=== PATIENT | female | born 1985 | race Caucasian/White ===

== ENCOUNTER 2016-05-23 14:49 | Inpatient (IN) | payer OTHER ==
[~2016-05-23] VITALS: Ht 154.9 cm; Wt 58.6 kg
[2016-05-23 14:52] VITALS: BP 122/65; O2SAT 98
[2016-05-23 17:18] VITALS: BP 121/50; PULSE 92; O2SAT 97
--- NOTE | 2016-05-23 18:01 | ED.REPORT ---
HPI-General Illness Date of Service May 23, 2016 ED Provider: Dr. Peralta Pt is a 30 y/o female w/ a hx of PTSD presenting to the ED via EMS due to unusual behavior onset unknown. The patient's friends called 911 for unusual speech and behavior. According to nursing notes, she was at [facility] yesterday. The patient denies being homeless. She states she has been seen by an packing machine can feeder for her thyroid. She states that she has been seen by a psychiatrist at [facility]. She calls herself a "maiden of the author" and repeatedly asks me questions about my eye color, stethoscope color, etc, and is very delusional. History is limited due to mental status. Urine tox screen negative. Breathalyzer = 0. Nursing Notes Stated Complaint: MENTAL HEALTH Chief Complaint: Psychiatric Complaint Nursing Notes Reviewed: Yes General Time Seen by MD: 18:01 Chief Complaint Other (Unusual behavior) Hx Obtained From: Patient, EMS Unable to Obtain Hx: Mental status Arrived By: Ambulance Past Medical History Past Medical History PTSD Past Surgical History Unknown Smoking History Unknown if Ever Smoker Ambulatory Status Independent Unable to Obtain History Social history Review of Systems Unable to Obtain ROS Mental status Full Review of Systems Psychiatric: Reports: Change mental status, Confusion, Delusional Physical Exam Vital Signs Vital Signs Date Time Temp Pulse Resp B/P Pulse Ox O2 Delivery O2 Flow Rate FiO2 05/23/16 21:29 37.0 93 112/68 98 Room Air 05/23/16 17:18 37.0 92 121/50 97 Room Air 05/23/16 14:52 36.4 122/65 98 Room Air Initial VS: Reviewed, Vital signs normal ENT: Mucous membranes moist, Conjunctiva normal, No scleral icterus Respiratory: Breath sounds normal, Clear to auscultation, No respiratory distress Cardiovascular: Regular rate & rhythm, Heart sounds normal, Intact distal pulses Abdomen / GI: Soft, Non-tender, No distention Extremities: Vascular intact, Neuro intact, No swelling, No tenderness Skin: Warm, Dry, No cyanosis Neurologic: Alert, Oriented, Nonfocal General/Constitutional: Awake, Alert, No acute distress, Cooperative, Not toxic appearing Head / Eyes: Atraumatic, Normocephalic Dilated pupils 6-7 mm bilat Neck: Atraumatic, Supple, No meningismus, Full range of motion Enlarged thyroid about 3x normal size - she states this is ongoing PSYCH: Delusional May be hallucinating Interpretation & Diagnostics Lab Results Interpretation Result Diagram: 05/23/16 19005/23/161904 Test 05/23/16 17:16 05/23/16 19:05 Hold Urine Received (Received) White Blood Count 8.1th/mm3 (3.8-10.1) Red Blood Count 4.46mil/mm3 (3.90-5.20) Hemoglobin 13.2g/dL (12.0-15.6) Hematocrit 38.0% (35.0-46.0) Mean Corpuscular Volume 85.2fL (81-100) Mean Corpuscular Hemoglobin 29.6pg (27.0-35.0) Mean Corpuscular Hemoglobin Concent 34.7% (32.0-37.0) Red Cell Distribution Width 13.0% (12.3-15.4) Platelet Count 186bil/L (150-400) Neutrophils (%) (Auto) 62.2% (40-74) Lymphocytes (%) (Auto) 26.8% (14-46) Monocytes (%) (Auto) 9.2% (4-12) Eosinophils (%) (Auto) 1.2% (0-5) Basophils (%) (Auto) 0.5% (0-3) Sodium Level 138mEq/L (134-144) Potassium Level 3.5mEq/L (3.5-5.2) Chloride Level 101mEq/L (97-108) Carbon Dioxide Level 18mmol/L (18-29) Blood Urea Nitrogen 3mg/dL (6-20) Creatinine 0.69mg/dL (0.57-1.00) Estimat Glomerular Filtration Rate 144mL/min (>59) Glucose Level 89mg/dL (60-99) Calcium Level 8.7mg/dL (8.5-10.1) Total Bilirubin 1.1mg/dL (0.0-1.2) Aspartate Amino Transf (AST/SGOT) 17U/L (0-50) Alanine Aminotransferase (ALT/SGPT) 13U/L (0-32) Alkaline Phosphatase 44U/L (25-150) Total Protein 6.9g/dL (6.4-8.4) Albumin 4.2g/dL (3.4-5.0) Thyroid Stimulating Hormone (TSH) 1.380uIU/mL (0.450-4.500) Hold Read Top Tube Received (Received) Re-Eval/Medical Decision Med Decision/Clinical Course 30-year-old presents with overtly psychotic behavior, with no history available locally. She is most recently come from [place], and [place] prior to that. She has overt hyper mormonism delusional thought, flight of ideas, and appears to be fairly typical bipolar psychotic in character. The only history she provides is PTSD due to unspecified incidents. She is very disorganized and difficult to get information from. At this point, DCR was consulted, and agreed that she is gravely impaired and requires detainment. She is detained as a single bed certification pending bed availability on the psychiatric unit tomorrow. Signed out at 2:[address] Linares Source of Hx: EMS, Family Consultation : Consulted With: b and b gang worker Call Returned at: 18:30 Manufacturing Engineer Automotive: Will see patient, Agrees with eval, Agrees with plan Note: After evaluating patient, recommends DMHP assessment. Counseled Regarding: Diagnosis, Lab results, Need for follow-up, When/why to return to ED Discharge & Departure Primary Impression: Psychosis Additional Impression: Bipolar mood disorder Disposition: ADMITTED TO HOSPITAL Discharge Condition All VS Reviewed: Yes Condition: Stable Referrals: NOPCP (PCP) Scribe Attestation Portions of this note were transcribed by Terry Lerma. I, Dr. Peralta personally performed the history, physical exam and medical decision-making; I reviewed and confirmed the accuracy of the information in the transcribed note. Signed by Parth Noel, 05/23/16 - 1899 Moreno Peralta MD May 23, 2016 18:01 TERRY LERMA May 23, 2016 18:03
[2016-05-23 19:14] LABS: BASOPHILS % (AUTO) 0.5 % (0-3); EOSINOPHILS % (AUTO) 1.2 % (0-5); MONOCYTES % (AUTO) 9.2 % (4-12); Mean Corpuscular Hemoglobin 29.6 pg (27.0-35.0); Mean Corpuscular Volume 85.2 fL (81-100); NEUTROPHILS % (AUTO) 62.2 % (40-74); Platelet Count 186 bil/L (150-400)
[2016-05-23 21:29] VITALS: BP 112/68; PULSE 93; O2SAT 98
[2016-05-24 04:24] VITALS: BP 122/81; PULSE 91; RESP 16; O2SAT 96
[2016-05-24] MEDS ORDERED: Haloperidol 5 mg/mL Inj IM ONE (04:25)
[2016-05-24 06:11] VITALS: BP 118/72; PULSE 92; RESP 18; O2SAT 97
[2016-05-24 11:42] VITALS: BP 99/67; PULSE 81; RESP 16; O2SAT 99
--- NOTE | 2016-05-24 12:44 | NUR ---
Nursing: Admission note: Erika arrived on the unit dressed in hospital garb accompanied by transport staff. She was shown to room 222 and lay in bed stating she wants to sleep. When approached by scientific writer, pt agreed to sign unit form for ROL but when approached by A staff, pt did not sign it and wrote a Bible verse on the form. Also wrote multiple bible verses and statements on the no-harm safety form. Fruit Farmworker did not proceed further with form signing or admission interview. When scientific writer approached Erika initially to introduce myself, she stated "I love your whittaker hair. You must be a pearl person...I am totally ok, I can just leave here, go home and get on with things... (scientific writer informed her that she was on a hole for up to 72 hours), I perceive that you are not telling me something. What are you not telling me?" (As scientific writer attempted to explain that she is detained involuntarily here). Also asked the name of the CDP who evaluated her in ED. When scientific writer told her Erika she could only have the first name, Erika responded that she knew the last name of the individual (She was correct on the name.) Requested earplugs to allow her to rest uninterrupted. A: Disorganized in thoughts. Religiously focused. Tired. Responding verbally. Suspicious? No insight into why she is detained. P: continue to assess. Addendum: 05/24/16 at 1812 by GREGORIO DOLAN RN Day shift: Erika slept until 1600. She then roused and changed to scrubs. Came to dining room and signed 2 admission papers. After being asked a couple more questions, she stated, "I can't answer now." Admission screens filled out but many have "Unknown" as the info. With assistance, Erika returned a call from her father. At 173, Pt was out in , sitting at table. When staff member turned gaze away and back, pt was observed on the floor. A peer patient stated Erika had fallen and he assisted her back to her seat. When Erika was questioned, she stated, "I just saw the man, the man who brings me ricardo. I fell for him.I just do that...I won't hurt anyone or myself." Denied any injury. Dr Harvey notified of pt. event at 175. VS WNL.
[2016-05-24 17:40] VITALS: BP 114/80; PULSE 74; RESP 20
[2016-05-24] MEDS ORDERED: LORazepam 1 mg Tablet PO PRN (17:40)
[2016-05-24] MEDS ORDERED: Benzocaine-Menthol Lozenge 2/Pkg PO PRN (17:40)
[2016-05-24] MEDS ORDERED: hydrOXYzine Pamoate 25 mg Capsule PO PRN (17:40)
[2016-05-24] MEDS ORDERED: Magnesium Hydroxide 10 mL Oral Concentration PO PRN (17:40)
[2016-05-24] MEDS ORDERED: Alum-Mag Hydrox-Simeth 30 mL Suspension PO PRN (17:40)
[2016-05-24] MEDS ORDERED: CLON-399 PO (18:16)
--- NOTE | 2016-05-25 01:27 | NUR ---
Observations 1900 to 0700 Pt behavior is bazaar at times. pr insisted she needed a wheelchair but I watched her walk though her room, she went to the rest room and had no issues. Staff agreed she did not need the wheelchair. She was walking around just fine and she told me as I wheeled it away that she needs in case she faints. She then plopped on the ground very carefully and pretended to faint. She tried it a few more times in the hallway and never hit her head. The wheel chair is no longer on the floor and she waked good the rest of th night even though she is trying to act out that shes not okay at times. Pt first appeared asleep at 22:45 and was observed every 15 minutes through the night as directed.
--- NOTE | 2016-05-25 06:10 | NUR ---
Nursing MARIA G Pt spent the evening coloring with her peers. She presents with childlike behavior, elevated mood and lability. She would be laughing and smiling one moment and then tearful the next. She performed a lot of attention seeking behavior and enjoyed the attention gained from both her peers and staff. She performed ADLs and participated in evening activities. No scheduled HS medications to be given. Declined offered prn medication for mood and sleep. Addendum: 05/25/16 at 0627 by JASBIR QUINN RN Adequate sleep through the night with no noted distress or awakening per protocol checks. She has remained asleep since 2244 for over 7 hours of sleep.
--- NOTE | 2016-05-25 13:14 | NUR ---
Supervisor Tan Room./ c.m. S.:"There is a man... He has my flours... I saw him in my room... May I call you love? Nobody called me love for a long time..." O.: met with pt. in a piano room for initial interview. Pt. is ARACELI 72 hrs hold as GD. She said that it was her 1st psych. hospitalization. She was diagnosed with Bipolar d/o and PTSD in the past. She wasn't taking her meds for a long time. She didn't see anything wrong with her. She came to [place] from [place], [place] to visit her "very good friend". She was upset with her friend for calling police and sending pt. to a hospital ED. Pt. denied SI/HI, denied depression or anxiety. She talked about "a man who has" her "flours". She was "communicating" with him on and off during a day. She also described him in details. She had a hard time following a conversation. She was acting out like a child with different gestures and sounds (sniffing, hamming, etc). She couldn't provide much of reliable information. She was very friendly and talkative with peers. A.: pt. is cooperative, pleasant, hyperverbal, confused, delusional, internally preoccupied and responding on internal stimuli. She is a poor historian. P.: monitor behavior, provide safety, encourage pt. to take meds, engage in the unit activities, collect more information; follow care plan.
--- NOTE | 2016-05-25 13:27 | NUR ---
Nursing Day Shift- S- "Everything is great! I have my lion (Pt. looked t a folder she was holding onto.) And..my green pants on the green floor! (Pt. had whittaker pants on and the floor is sargent.) O- Pt. had slept 7 plus hours per report. She was awake for breakfast and dressed in flannel pajamas. Pt. appeared bright with rapid upbeat speech and a childlike affect. She was observed skipping in the hallway. She was very social with peers and appeared to have poor boundaries, sitting and standing very closely with others. Pt. was offered and accepted Ativan 1 mg at 0945 for hypomanic behavior. It appeared to have a limited calming effect. A- Hypomania, disorganized thoughts, auditory hallucinations. Vulnerable with poor boundaries and a wide smile. P- Monitor Pt. for safety and appropriate behavior with peers. Cont. BHTP.
--- NOTE | 2016-05-25 16:19 | NUR ---
Observations 0700 to 1900 Pt affect and mood was childlike, labile and preoccupied. Pt was in and out of her room most of the day. Pt ate meals in D.R. and ate 100% of meals. Pt ate snack. Pt attended groups or unit activities today. Pt attended community meeting and set a goal for the day. Pt rated her mood 10 out of 10, with 10 being the highest. Pt did some coloring with peers. Pt went out on patio with staff and peers to get some fresh air. Pt was pleasant, polite and cooperative. Pt was social with peers but has poor boundaries. Pt maintained behavior throughout the shift. Pt used the phone several times during the day. Pt was observed every 15 minutes throughout the shift as ordered. Pt is currently resting in bed.
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
[2016-05-25] MEDS: OLANZapine Zydis ODT 5 mg Tablet PO SCH (20:30)
--- NOTE | 2016-05-25 21:29 | NUR ---
Nursing Note Luna Pt in milieu upon arrival to unit. Pt affect superficially bright and child like. Pt denied anxiety stating " Im not anxious but Im not happy about not being able to pick out the clothes I have to wear here". Pt denied depression and SI. Pt thought process disorganized and speech rapid. Pt cooperative and polite and had been socializing with peers throughout the shift. Pt declined meds for court in AM. Q15 min safety checks done per protocol WCTM sleep, safety, behavior
--- NOTE | 2016-05-26 02:01 | NUR ---
Observations 1900 to 0700 Pt behavior is the same as last night. Pt only did the fake "fainting" spell once. Pt had a hard time staying asleep. Pt first appeared asleep at 22:15 and was observed every 15 minutes through the night as directed.
--- NOTE | 2016-05-26 06:17 | NUR ---
Sleep 11p-7a Delayed onset of sleep. Pt requesting to call an compliance attorney in [place] during the middle of the night. Pt instructed phone calls can be made during business hours in the daytime. Pt quietly coloring in dining room until fell back asleep @ 0215. Total sleep 5.5+ hours.
[2016-05-26] MEDS: OLANZapine Zydis ODT 5 mg Tablet PO SCH ×2 (08:30→20:11)
--- NOTE | 2016-05-26 12:39 | NUR ---
Nursing Day Shift- S- "No thank you. It makes me sleepy during the day. I'll take it at bedtime." O- Pt. had slept 5.5 hours plus per report. She was awake for breakfast and court. Pt. continues to be very bright, with pressured speech and poor boundaries. She declined medications before court. They were offered again after and the Pt. declined, explaining they caused sedation. She did agree to take them at bedtime tonight. A- Gem like symptoms with bright friendly affect and poor boundaries with peers. P- 2nd opinion being obtained for forced medications. Cont. BHTP.
[2016-05-26 14:41] VITALS: BP 109/80; PULSE 81; RESP 16
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
--- NOTE | 2016-05-26 18:23 | NUR ---
[facility] Day Shift Pt maintained behavioral control throughout the shift. Pt affect appears bright, manic. Pt spends most of the shift engaging in unit activities and socializing with peers. Pt occasionally observed becoming tearful when engaging in group activities (pt unable to articulate precisely why this was the case). Pt is pleasant and appropriate with staff and peers when active on the unit. Pt attended community meeting in the AM and group activities throughout the shift. Pt attended all meals and ate approx 100% of all meals.
--- NOTE | 2016-05-26 21:55 | NUR ---
[id number] NURSING NOTE Mood= "good! It's so nice of you to ask me that, thank you!" *stretches out hand for a handshake* Affect= cheerful, hypomanic Behavior= very visible and active on the unit, socializing w/peers, attended rec group, visited with her parents. Requested her HS meds early as she reports she likes to "go to bed early so I can wake up at 4:30 and write". 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 Thought processes= more coherent than 2 evenings ago when this television script writer last worked with her. Able to answer some questions appropriately but can be disorganized, occasionally pressured and rapid. Denies SI/HI/AH/VH.
--- NOTE | 2016-05-27 01:53 | NUR ---
Observations 1900 to 0700 Pt affect and behavior were much improved. Pt's parents visited last night. Pt first appeared asleep at 21:45 and was observed every 15 minutes through the night as directed.
--- NOTE | 2016-05-27 05:31 | NUR ---
nursing, nights, 11-7 s/o- has appeared to sleep after 2144 during q 15 minute assessments. a- no apparent distress. p- monitor behavior/emotional state, quality, times and amount of sleep, use and effect of medication. piter
[2016-05-27] MEDS: OLANZapine Zydis ODT 5 mg Tablet PO SCH ×2 (09:11→21:00)
--- NOTE | 2016-05-27 11:31 | NUR ---
Nursing Day Shift- S- "Thank you. I would prefer to have an injection. (Pt. had declined her scheduled AM zyprexa. She was told of the 2nd opinion for forced medications, and stated the above. Dr. Harvey was consulted, and changed the Zyprexa order to HS.) O- The Pt. was awake and dressed for breakfast. She had slept over 8 hours per report. Pt. continues to appear hyperverbal, bright and very social. She agreed to take PO Zyprexa at HS. A- Refused AM medications. Hypomanic with poor boundaries. P- 2nd opinion signed for forced meds. Cont. BHTP.
--- NOTE | 2016-05-27 13:20 | PCM.PNPSY ---
Subjective Date of Service May 27, 2016 Subjective I spent 30 minutes both reviewing treatment plan and providing supportive/ educational psychotherapy. I spent more than 50% of the time counseling the patient. I reviewed the treatment plan with the patient and discussed options available including the potential risks, benefits and side effects. Erika reports continued improvement in thought organization and mood stability. Staff reports that she continues to be very busy on the unit but she is participating well in one-to-one unit and group activities. She remains somewhat intrusive, hypersexual, and pressured in speech and thought. She has a lack of insight and judgment. She is redirectable. She slept 8.25 hours and denies psychotic symptoms review. She is declining offers of medication this time. She has a second opinion medication override and will take the medication when faced with an IM alternative. . Current Medications Current Medications Clonazepam 0.5 mg BID PO Last administered on 05/26/16 20:11; Admin Dose 0.5 MG ; Start 05/25/16 at 20:30 Olanzapine 10 mg BID PO Last administered on 05/26/16 20:11; Admin Dose 10 MG; Start 05/25/16 at 20:30; Stop 05/27/16 at 10:13; Status DC Mental Status Exam Appearance: Neat/well groomed Attitude: Pleasant, Cooperative Behavior: Distractible Affect: Other (euphoric) Mood: Euphoric Thought Process/Associations: Goal Directed, Tangential Speech Production: Abundant Speech Rate: Normal Speech Articulation: Normal Thought Content: Erotomanic Danger to Self/Suicidal Ideati: None Danger to Others: None Delusions: Grandiose (Endorses) Consciousness: Hyper-vigilant Orientation: Person, Place, Date, Situation Memory: Grossly Intact Estimate Intellectual Function: Above Average Basis for IQ estimate: Awareness current events, Word use/vocabulary, Educational history Attention/Concentration & Cogn: Impaired Cognitive Testing Method: Abstract Reasoning during interview Insight: Limited Judgement: Limited Result Diagram: 05/23/16190405/23/161904 Mental Health Plan The patient is a 30-year-old white female who apparently left [place] 48 hours ago, abandoned her car on the freeway, and was taken to the ER by friends for recent bizarre behavior. She denies history of substance abuse and her urine tox screen was negative and she appears quite healthy, if not extremely active and having some bizarre behaviors. She reported being diagnosed with bipolar disorder and 2007. She reported trials of lithium Which she stated she did not tolerate well. Client is refusing all medications. She does not believe she needs medications and does not believe she has a mental disorder. In observing her, she certainly has all the behaviors of bipolar mood disorder, manic with psychotic features. A medication override was obtained through a second physician opinion. She received 1 dose of Zyprexa last evening. [place] I: 1. Preliminary bipolar mood disorder with psychosis. 2. Reported post-traumatic stress disorder. 3. Rule out schizophrenia. [place] II: Deferred. [place] III: None. [place] IV: Unknown. [place] V: Current Global Assessment of Functioning equal to 30. Medications Treatments Patient is being provided with a high degree of safety through the structure and active adult engagement. We will focus on developing improved coping skills and identifying stressors that may have led to current episode. We will attempt to: Integrate into therapeutic groups, milieu and individual therapy. Maintain in a closely monitored and structured unit Provide low-stimulation environment Obtain collateral data to assist in treatment planning Assess degree of lability of affect and impulse control Complete safety plan Establish a consistent sleep pattern Medication effective in stabilization of mood and/or thought process Reduce the risk of imminent harm to self by providing a safe environment Tolerates medication without side effects Patient will be on the following psychiatric medications: Recommend Zyprexa 10 mg at bedtime Recommend Klonopin 0.5 mg twice a day Address patient's legal status Patient is on a 72 hour involuntary treatment hold. Patient will be given the opportunity to talk to her health information tech and the behavioral interventionist Tuesday Kyler Harvey MD May 27, 2016 13:20
--- NOTE | 2016-05-27 17:57 | NUR ---
[facility] Day Shift Pt affect and behavior mostly unchanged from previous shift. Pt maintained behavioral control throughout the shift. Pt affect appears bright, manic. Pt spends most of the shift engaging in unit activities and socializing with peers. Pt occasionally observed becoming tearful when engaging in group activities. Pt is pleasant and appropriate with staff and peers when active on the unit. Pt attended community meeting in the AM and group activities throughout the shift as able (pt frequently needed to meet with various staff members during group activities). Pt attended all meals and ate approx 100% of all meals.
--- NOTE | 2016-05-27 22:30 | NUR ---
NURSING NOTE [id number] Mood: "I am just wonderful except I am very worried I will faint in the shower and hit my head and what will happen to me? Will you come with me and help me sign the legal paper so that my sister can make my decisions for me if I hit my head? Oh will you? Please?" Affect: hypomanic Behavior: intrusive w/other pts, needed redirection several times for inappropriate touching of other pts as well as this underwriter (stroking my hand). Pt. walked and sometimes run-shuffled around the unit w/a long to-do list of activities she wants to accomplish during the shift and persistently asks this underwriter to assist her w/the activities. She has been social and busy on the unit, seeks out interaction w/her peers and staff frequently. Pt. was in the shower room for 1.5 hrs. When this underwriter tried to get her out of the shower room she sat on the floor and refused to move stating: "I had an agreement that I couldn't come out of here until I signed my legal paperwork." Pt. eventually agreed to come back to her room. Signed a MARLYS to give info to her sister. Refused to take her HS Zyprexa in PO format and requested an injection, despite this underwriter providing education. Pt. stated "this is me and Dr. Harvey's little loophole because I have legal paperwork to sign and due to the legal paperwork this is the way that I choose to take it". Order obtained for injection. Thought processes= disorganized, pressured, presents as overly needy, particularly when staff has to attend to other pts. Redirectable at times but other times has a defiant edge.
--- NOTE | 2016-05-28 04:27 | NUR ---
Pt had visitors in evening. Out on unit trying to sell another Pt a car and write up contract. Asleep at 0030. Pt observed every 15 minutes as ordered.
--- NOTE | 2016-05-28 05:53 | NUR ---
nursing, nights, 11-7 s- can i have some bible songs ? at what time ? by clock time ? i'm just going to read this passage. thanks. o- has appeared to sleep after 0030 during q 15 minute assessments. a- somewhat manipulative, no apparent distress. p- monitor behavior/emotional state, quality, times and amount of sleep, use and effect of medication. piter
[2016-05-28 09:00] VITALS: BP 110/74; PULSE 75; RESP 18
--- NOTE | 2016-05-28 12:28 | PCM.PNPSY ---
Subjective Date of Service May 28, 2016 Subjective I spent 20 minutes both reviewing treatment plan and providing supportive/ educational psychotherapy. I spent more than 50% of the time counseling the patient. I reviewed the treatment plan with the patient and discussed options available including the potential risks, benefits and side effects. Erika reports feeling great. Staff reports that she continues to be very busy on the unit but she is participating well in one-to-one unit and group activities. She remains somewhat intrusive, hypersexual, and pressured in speech and thought. She has a lack of insight and judgment. She is redirectable. She slept 3.5 hours and denies psychotic symptoms review. She is declining offers of medication this time. She has a second opinion medication override and will take the medication when faced with an IM alternative. Current Medications Current Medications Olanzapine 10 mg PRN PRN IM Last administered on 05/27/16t 23:07; Admin Dose 10 MG; Start 05/27/16 at 22:45 Mental Status Exam Appearance: Neat/well groomed Attitude: Pleasant, Cooperative Behavior: Distractible Affect: Other (euphoric) Mood: Euphoric Thought Process/Associations: Goal Directed, Tangential Speech Production: Abundant Speech Rate: Normal Speech Articulation: Normal Thought Content: Erotomanic Danger to Self/Suicidal Ideati: None Danger to Others: None Delusions: Grandiose (Endorses) Consciousness: Hyper-vigilant Orientation: Person, Place, Date, Situation Memory: Grossly Intact Estimate Intellectual Function: Above Average Basis for IQ estimate: Awareness current events, Word use/vocabulary, Educational history Attention/Concentration & Cogn: Impaired Cognitive Testing Method: Abstract Reasoning during interview Insight: Limited Judgement: Limited Result Diagram: 05/23/16190405/23/161904 Mental Health Plan The patient is a 30-year-old white female who apparently left [place] 48 hours ago, abandoned her car on the freeway, and was taken to the ER by friends for recent bizarre behavior. She denies history of substance abuse and her urine tox screen was negative and she appears quite healthy, if not extremely active and having some bizarre behaviors. She reported being diagnosed with bipolar disorder and 2007. She reported trials of lithium Which she stated she did not tolerate well. Client is refusing all medications. She does not believe she needs medications and does not believe she has a mental disorder. In observing her, she certainly has all the behaviors of bipolar mood disorder, manic with psychotic features. A medication override was obtained through a second physician opinion. She received another dose of Zyprexa last evening but only when given IM. [place] I: 1. Preliminary bipolar mood disorder with psychosis. 2. Reported post-traumatic stress disorder. 3. Rule out schizophrenia. [place] II: Deferred. [place] III: None. [place] IV: Unknown. [place] V: Current Global Assessment of Functioning equal to 30. Medications Treatments Patient is being provided with a high degree of safety through the structure and active adult engagement. We will focus on developing improved coping skills and identifying stressors that may have led to current episode. We will attempt to: Integrate into therapeutic groups, milieu and individual therapy. Maintain in a closely monitored and structured unit Provide low-stimulation environment Obtain collateral data to assist in treatment planning Assess degree of lability of affect and impulse control Complete safety plan Establish a consistent sleep pattern Medication effective in stabilization of mood and/or thought process Reduce the risk of imminent harm to self by providing a safe environment Tolerates medication without side effects Patient will be on the following psychiatric medications: Recommend Zyprexa 10 mg at bedtime Recommend Klonopin 0.5 mg twice a day Address patient's legal status Patient is on a 72 hour involuntary treatment hold. Patient will be given the opportunity to talk to her atlassian administrator and the belt dresser Tuesday Kyler Harvey MD May 28, 2016 12:28
--- NOTE | 2016-05-28 16:26 | NUR ---
spiritual care: pt request Visited with pt who was in the piano room playing the piano and singing a hymn. Pt was grateful for the pizza hut assistant visit and talked to me about her experiences and [place]. Pt seems to have a hyper religiosity about her - which is not unusual but seems to be fueling most of her delusions. We talked about her friend who called the police on her, her experience of [place] and her hopes for the future. I encouraged her to stop trying to figure everything out and assign spiritual meaning to everything and instead to allow things to flow for her. I suggested some visualization prayer to help her get out of her obsessive thoughts. We prayed together before I left the room. Spiritual care will continue to follow as needed.
--- NOTE | 2016-05-28 18:18 | NUR ---
[facility] Day Shift Pt affect and behavior mostly unchanged from previous shift, though pt does appear more religiously preoccupied than noted on previous shifts. Pt maintained behavioral control throughout the shift. Pt affect appears bright, manic. Pt spends most of the shift engaging in unit activities and socializing with peers. Pt occasionally observed becoming tearful when engaging in group activities. Pt is pleasant and appropriate with staff and peers when active on the unit. Pt expresses some need to be "solitary" in the AM. Pt attended community meeting in the AM and group activities throughout the shift. Pt attended all meals and ate approx 100% of all meals.
--- NOTE | 2016-05-28 18:27 | NUR ---
Nursing Day Shift S: "I really don't think I need that. Can I refuse it? Or can I just take half?" O: Patient did take her AM Clonazepam 0.5 mg tab at breakfast with encouragement. Has been very social with peers and staff. Pleasant mood. Eating well at meals. Attending group activities. Denies anxiety, depression, harmful thoughts, and hallucinations. A: Talkative. Pleasant mood. P: CPOC. Monitor mood and behavior.
[2016-05-28] MEDS: OLANZapine Zydis ODT 5 mg Tablet PO SCH (20:24)
--- NOTE | 2016-05-28 20:29 | NUR ---
Manager Quality/Counselor: S: "I'm making a difference by helping the patients here." O: Met with patient. Patient slept 5.5 hours last night per staff. She denied S/I and H/I. She denied auditory and visual hallucinations. Depression is 0/10 and anxiety is ".5"/10. When asked her mood, she stated, "Content but troubled in spirit." A: Patient is cooperative, distractible, euphoric, tangential, grandiose, hypervigilant, limited insight, limited judgement. P: Follow care plan, coordinate with out-patient providers.
--- NOTE | 2016-05-29 04:59 | NUR ---
Final Rail Cutter 7pm to 7am Pt visible on unit at start, interacting appropriately with peers, requests less demanding and less dramatic. BX less impulsive. Thoughts distractible and loose, less grandiose. Pt parents visited and they reported she seemed clearer. Pt went to bed without incident and slept through the night uninterrupted. Monitored q15 minutes for safety location and accountability.
[2016-05-29 11:43] VITALS: BP 110/73; PULSE 83; RESP 16
--- NOTE | 2016-05-29 15:26 | PCM.PNPSY ---
Subjective Date of Service May 29, 2016 Subjective I spent 45 minutes both reviewing treatment plan and providing supportive/ educational psychotherapy. I spent more than 50% of the time counseling the patient. I reviewed the treatment plan with the patient and discussed options available including the potential risks, benefits and side effects. Erika reports feeling calm and back to her normal self. Staff reports that she has been more socially appropriate on the unit and continues to participate well in one-to-one unit and group activities. She is significantly less intrusive, hypersexual, and pressured in speech and thoughtt. She is requiring almost no redirection. She slept 8 hours and denies psychotic symptoms review. She denies medication side effects Current Medications Current Medications Olanzapine 10 mg HS PO Last administered on 05/28/16 20:24; Admin Dose 10 MG; Start 05/27/16 at 21:00 Olanzapine 10 mg PRN PRN IM Last administered on 05/27/16 23:07; Admin Dose 10 MG; Start 05/27/16 at 22:45 Mental Status Exam Vital Signs Vital Signs Date Time Temp Pulse Resp B/P Pulse Ox O2 Delivery O2 Flow Rate FiO2 05/29/16 11:43 36.1 83 16 110/73 Appearance: Neat/well groomed Attitude: Pleasant, Cooperative Behavior: No unusual behavior Affect: Well Modulated/Appropriate Mood: Euthymic Thought Process/Associations: Goal Directed, Tangential Speech Production: Normal Speech Rate: Normal Speech Articulation: Normal Thought Content: Erotomanic Danger to Self/Suicidal Ideati: None Danger to Others: None Consciousness: Alert Orientation: Person, Place, Date, Situation Memory: Grossly Intact Estimate Intellectual Function: Above Average Basis for IQ estimate: Awareness current events, Word use/vocabulary, Educational history Attention/Concentration & Cogn: Impaired Cognitive Testing Method: Abstract Reasoning during interview Insight: Good Judgement: Good Result Diagram: 05/23/16190405/23/161904 Mental Health Plan The patient is a 30-year-old white female who apparently left [place] 48 hours ago, [place] her car on the freeway, and was taken to the ER by friends for recent bizarre behavior. She denies history of substance abuse and her urine tox screen was negative and she appears quite healthy, if not extremely active and having some bizarre behaviors. She reported being diagnosed with bipolar disorder and 2007. She reported trials of lithium Which she stated she did not tolerate well. Client is refusing all medications. She does not believe she needs medications and does not believe she has a mental disorder. In observing her, she certainly has all the behaviors of bipolar mood disorder, manic with psychotic features. A medication override was obtained through a second physician opinion. Erika is now taking medications and has had a marked decrease in manic and psychotic Symptoms. If she continues to improve would anticipate discharge within the next 72 hours. [place] Dend[place] I: 1.bipolar mood disorder manic phase with psychotic features. . [place] II: Deferred. [place] III: None. [place] IV: Unknown. [place] V: Current Global Assessment of Functioning equal to 40. Medications Treatments Patient is being provided with a high degree of safety through the structure and active adult engagement. We will focus on developing improved coping skills and identifying stressors that may have led to current episode. We will attempt to: Integrate into therapeutic groups, milieu and individual therapy. Maintain in a closely monitored and structured unit Provide low-stimulation environment Obtain collateral data to assist in treatment planning Assess degree of lability of affect and impulse control Complete safety plan Establish a consistent sleep pattern Medication effective in stabilization of mood and/or thought process Reduce the risk of imminent harm to self by providing a safe environment Tolerates medication without side effects Patient will be on the following psychiatric medications: Recommend Zyprexa 10 mg at bedtime Recommend Klonopin 0.5 mg twice a day Address patient's legal status Patient is on a 72 hour involuntary treatment hold. Patient will be given the opportunity to talk to her printing equipment mechanic apprentice and the patent litigation associate Kyler Tapia MD May 29, 2016 15:26
--- NOTE | 2016-05-29 18:20 | NUR ---
Observations 0700 to 1900 Pt maintained behavioral control throughout the shift. Pt is disoriented, distractible, grandiose. Pt is religiously preoccupied--spent much of morning praying and chanting in room. Pt is needy/entitled, consistently making requests that contradict each other. Pt seemed to enjoy socializing with peers but conversations that contract technical writer overheard were nonlinear. Pt had visit with parents in evening. Pt ate 75-100% of meals and was observed every 15 minutes as ordered.
[2016-05-29] MEDS: OLANZapine Zydis ODT 5 mg Tablet PO SCH (20:02)
--- NOTE | 2016-05-29 20:42 | NUR ---
Pt declined Klonoabebe at stating " I think it is too strong. I felt really groggy when I woke up today and stayed like that until noon". Pt given ambien for sleep.
--- NOTE | 2016-05-29 22:48 | NUR ---
Nurses Note Evening Patient has been pleasant,polite and appropriately social with peers. She enjoyed a visit from her parents and retired to bed shortly afterwards. Patient has remained medication compliant without adverse effects. Will maintain q 15min. checks for safety and support. Addendum: 05/29/16 at 2251 by BINH VAZQUEZ RN Amended: Links added.
--- NOTE | 2016-05-30 04:49 | NUR ---
Pt slept through the night with uninterrupted sleep. Pt slept 8.5 hours. Monitored q 15 min for safety , location and accountability.
--- NOTE | 2016-05-30 08:13 | NUR ---
PT REFUSED Floyd RIVERO Pt. 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 I think I'm good!" *smiles* Education provided.
[2016-05-30 09:37] VITALS: BP 108/67; PULSE 83; RESP 18
--- NOTE | 2016-05-30 13:22 | NUR ---
Nursing Dayshift: S: "Can I move to room 224 after they put the new door on?" O: Patient c/o male in the room next to her "he sometimes yells and sings real loud and it would be nice to have a room farther away". Has been eating her meals by herself today with a good appetite. Has been out of her room for group activities. Pleasant on approach. Med compliant. Working out in her room. Anxiety "low". Depression "a little". Denies harmful thoughts and hallucinations. A: Bright and cheerful though less than yesterday. Scripture focused. P: CPOC. Monitor mood and behavior.
--- NOTE | 2016-05-30 13:47 | NUR ---
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 S.:"I slept wonderful! I don't remember when I slept that good ever. I feel really content and centered." O.: met with pt. in her room. She was practicing specific yoga poses. "Dr. Harvey said that I need to master double fold because it will help me with meditation. He also said that I have to learn better a scorpion pose before age 31. Otherwise I won't be able to have children." We discussed her yoga practice and her mood. She denied SI/HI, denied AH/VH, denied paranoid/delusional thoughts. She felt "very stable, content and centered" today. She denied depression or anxiety. She had a good visit with her parents yesterday and they were going to come back today. She had a few "concerns" about her future outpatient treatment and a place to live. She agreed to have a family mtg with her parents today at 15:00 to discuss her concerns and their questions. Pt. said that she would like to spend more time in her room today because there was "too much noise in the Dining room." She believed that meds were working well for her. She became more anxious by the end of the conversation. A.: pt. is cooperative, isolative, pleasant, confused at time. P.: monitor behavior, family mtg at 15:00 today, provide safety in the unit; follow care plan.
--- NOTE | 2016-05-30 13:56 | PCM.PNPSY ---
Subjective Date of Service May 30, 2016 Subjective I spent 30 minutes both reviewing treatment plan and providing supportive/ educational psychotherapy. I spent more than 50% of the time counseling the patient. Erika reports feeling calm and back to her normal self. Staff reports that she has been more socially appropriate on the unit and continues to participate well in one-to-one unit and group activities. She is significantly less intrusive, hypersexual, and pressured in speech and thought. She is requiring almost no redirection. She slept 8 hours and denies psychotic symptoms review. Mental Status Exam Appearance: Neat/well groomed Attitude: Pleasant, Cooperative Behavior: No unusual behavior Affect: Well Modulated/Appropriate Mood: Euthymic Thought Process/Associations: Logical/Sequential, Goal Directed Speech Production: Normal Speech Rate: Normal Speech Articulation: Normal Thought Content: Erotomanic Danger to Self/Suicidal Ideati: None Danger to Others: None Consciousness: Alert Orientation: Person, Place, Date, Situation Memory: Grossly Intact Estimate Intellectual Function: Above Average Basis for IQ estimate: Awareness current events, Word use/vocabulary, Educational history Attention/Concentration & Cogn: Impaired Cognitive Testing Method: Abstract Reasoning during interview Insight: Good Judgement: Good Mental Health Plan The patient is a 30-year-old white female who apparently left [place] 48 hours ago, abandoned her car on the freeway, and was taken to the ER by friends for recent bizarre behavior. She denies history of substance abuse and her urine tox screen was negative and she appears quite healthy, if not extremely active and having some bizarre behaviors. She reported being diagnosed with bipolar disorder and 2007. She reported trials of lithium Which she stated she did not tolerate well. Client is refusing all medications. She does not believe she needs medications and does not believe she has a mental disorder. In observing her, she certainly has all the behaviors of bipolar mood disorder, manic with psychotic features. A medication override was obtained through a second physician opinion. Erika is now taking medications and has had a marked decrease in manic and psychotic Symptoms. If she continues to improve would anticipate discharge within the next 72 hours. [place] I: 1.bipolar mood disorder manic phase with psychotic features. . [place] II: Deferred. [place] III: None. [place] IV: Unknown. [place] V: Current Global Assessment of Functioning equal to 45. Medications Treatments Patient is being provided with a high degree of safety through the structure and active adult engagement. We will focus on developing improved coping skills and identifying stressors that may have led to current episode. We will attempt to: Integrate into therapeutic groups, milieu and individual therapy. Maintain in a closely monitored and structured unit Provide low-stimulation environment Obtain collateral data to assist in treatment planning Assess degree of lability of affect and impulse control Complete safety plan Establish a consistent sleep pattern Medication effective in stabilization of mood and/or thought process Reduce the risk of imminent harm to self by providing a safe environment Tolerates medication without side effects Patient will be on the following psychiatric medications: Recommend Zyprexa 10 mg at bedtime Recommend Klonopin 0.5 mg twice a day Address patient's legal status Patient is on a 72 hour involuntary treatment hold. Patient will be given the opportunity to talk to her fiscal accounting clerk and the director of employer services Kyler Tapia MD May 30, 2016 13:56
--- NOTE | 2016-05-30 18:36 | NUR ---
Observations [id number] Pt was awake walking halls upon start of shift. She appeared to be very anxious today, requesting to eat in her room, and bring other activities to her room to what appeared to be isolating. Pt also asked to do two loads of laundry, with only two items of clothing. Pt expressed later in the afternoon that she is feeling very concerned about the side effects of her medication, as previously her meds made her feel like a "zombie." Pt also stated "It's time for me to leave here, I'm so ready to leave here." Pt appeared to be more relaxed after talking. She also asked who on the unit she should spend time with, stating that she had made previous advances at some of the male peers on the unit, and now feels like they are "following her around" and it's "too difficult to set boundaries." Pt attended all meals, eating 100%. Pt was observed every 15 minutes of shift as directed.
[2016-05-30] MEDS: OLANZapine Zydis ODT 5 mg Tablet PO SCH (20:19)
--- NOTE | 2016-05-30 22:15 | NUR ---
Nurses Note Evening Patient has been anxious,isolative with peers stating she has a lot on her mind and wants to be alone. patient has been scattered in behaviors and thoughts concerned about insignificant details in policy and procedures wanting to be discharged home. She has been concerned about her medications and their side effects stating she needed to conference with the doctor regarding taking them. She did accept HS medications. Will maintain q 15min. checks for safety,support,continue care plan. Addendum: 05/30/16 at 2222 by BINH VAZQUEZ RN Amended: Links added.
--- NOTE | 2016-05-31 05:48 | NUR ---
nursing, nights, 11-7 s/o- has appeared to sleep after 2144 during q 15 minute assessments. a- no apparent distress. Awake for the day at 0445 remains pleasant and talkative. p- monitor behavior/emotional state, quality, times and amount of sleep, use and effect of medication.
--- NOTE | 2016-05-31 06:41 | NUR ---
This morning Erika was asked by another pt to give advice on a recovery plan and she handled the situation very well. She approached me and asked me to come out and speak with them, explained the situation in a calm and collected manner and deferred working on the plan to me and a RN. Pt was very respectful and explained the situation and why she was uncomfortable, in a way the other patient would understand and accept what was going on. She then removed herself from the situation so that we could finish talking with this patient.
--- NOTE | 2016-05-31 13:42 | NUR ---
Nursing Note [id number] Behavior S/O: Pt frustrated with another pt this morning, but was able to process frustration with staff. She took all medications except Klonopin this am stating, "It makes me feel fuzzy....I don't like it." Pt rated mood as a "happy medium." Pt ate 100% of breakfast & lunch. She attended community meeting this morning. Her goal for the day was to talk with the psychiatrist. She has a list of subjects she wants to talk about. Pt has declined medication prior to court tomorrow. Conversation tracking clear & organized with normal rate & rhythm. A: Pt con't to have some depression. P: Provide supportive environment. Monitor medication & effects.
--- NOTE | 2016-05-31 15:14 | PCM.PNPSY ---
Subjective Date of Service May 31, 2016 Subjective The patient reports that she is "doing good, I have some concerns about medication." The patient reports that aripiprazole was not helpful for the patient and she was concerned that she may be receiving this medication. She was informed she was not currently receiving this medication. She reported that clonidine was prescribed in the past but it worsened her symptoms and eventually led to her inability to dress, stand, take showers, or communicate. She denies any night terrors for the last 2 weeks since being off clonidine. She denies any drug use. She reports that she plans to follow up with Dr. Milena Haro in [place], [place]. Sleep: 7+ hours Appetite: Okay but somewhat constipated Suicidal and homicidal ideation: Denies Auditory hallucinations/Visual hallucinations: Denies Other Psychotic Symptoms: N/A Anxiety: 1-1.5/10 Depression: Less than 5/10 Mental Status Exam Appearance: Neat/well groomed Attitude: Pleasant, Cooperative Behavior: No unusual behavior Affect: Well Modulated/Appropriate Mood: Euthymic Thought Process/Associations: Logical/Sequential, Goal Directed Speech Production: Normal Speech Rate: Normal Speech Articulation: Normal Thought Content: Perseveration (mild) Danger to Self/Suicidal Ideati: None Danger to Others: None Hallucinations: Auditory (Denies), Visual (Denies) Consciousness: Alert Orientation: Person, Place, Date, Situation Memory: Grossly Intact Estimate Intellectual Function: Average Basis for IQ estimate: Awareness current events, Word use/vocabulary, Educational history Attention/Concentration & Cogn: Impaired Insight: Good Judgement: Good Mental Health Plan The patient is a 30-year-old white female who apparently left [place] 48 hours prior to admission, abandoned her car on the freeway, and was taken to the ER by friends for recent bizarre behavior. She denies history of substance abuse and her urine tox screen was negative and she appears quite healthy, other than her recent bizarre behaviors. The patient initially declined all medication stating that she did not need medications as she did not believe she had a mental disorder. She eventually began taking medications and has noted significant improvement. She is reporting some sedation from clonazepam and declined this medication this morning prior to speaking with the treatment team. She reports feeling more awake and her thoughts less clouded. She is willing to have follow-up in [place] where she resides. [place] I: Bipolar 1 disorder, manic with psychotic features [place] II: Deferred. [place] III: None. [place] IV: Unknown. [place] V: Current Global Assessment of Functioning equal to 45. Medications Clonazepam 0.5 mg twice daily Olanzapine 10 mg nightly Treatments 1. The patient is admitted to the inpatient unit and will be provided a safe and secure environment. 2. The patient is denying current active suicidality and is not in need of a one-to-one at this time. 3. The patient is encouraged to participate with group and milieu activities. 4. The patient will be seen by the treatment team on a daily basis to assess symptoms, side effects and response to treatment. 5. The patient will be continued on olanzapine 10 mg nightly for demarcus. 6. Discontinue clonazepam.. 7. Zolpidem tartrate 5 mg p.o. nightly p.r.n. insomnia. 8. Lorazepam 1 mg as needed for anxiety or agitation. 9. Anticipated length of stay is 1-2 days. Han Johnson MD May 31, 2016 15:14
[2016-05-31 15:32] VITALS: BP 110/71; PULSE 93; RESP 16
--- NOTE | 2016-05-31 18:40 | NUR ---
Observations [id number] Pt was awake in [place] upon start of shift. She appeared to be more anxious today regarding her discharge and being around other patients. Pt appeared to isolate during group activities as well as meals, moving tables and telling peers "I need my space" and "I need to do what's best for me." Pt also had lots of questions regarding medication side effects. Pt was overhead telling other patients that she didn't want to discuss certain topics with them when brought up, leaving the room and firmly setting boundaries which appeared to catch others off guard. Pt attended stretching group in the afternoon. She had multiple requests of staff throughout the day. Pt had visitors in the evening and she appeared to enjoy the visit. Pt ate 100%, and was observed every 15 minutes of shift as directed.
[2016-05-31] MEDS: OLANZapine Zydis ODT 5 mg Tablet PO SCH (21:24)
--- NOTE | 2016-06-01 02:02 | NUR ---
Observations 1900 to 0700 Pt affect and behavior were much improved. Pt had many visitors last night. Pt did attend wrap up group before going to her room for the night. Pt first appeared asleep at 21:45 and was observed every 15 minutes through the night as directed.
--- NOTE | 2016-06-01 06:15 | NUR ---
nursing, nights, 11-7 s/o- has appeared to sleep after 2114 during q 15 minute assessments. a- no apparent distress. p- monitor behavior/emotional state, quality, times and amount of sleep, use and effect of medication.
--- NOTE | 2016-06-01 08:05 | NUR ---
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 S.:"I'm very good. My parents are waiting for a phone call about my discharge and they will be here right away." O.: met with pt. to discuss her discharge. She completed Safety plan. Her parents agreed to take her back to [place]. Pt. left a message with Dr. Milena Haro MD, Ph.D. asking for intake appt. Analytics Analyst left a message with Alexandre Mendes MD, Ph.D. also ([phone]). Pt. agreed to try connecting with Sandy Lloyd MD also ([phone]). She denied SI/HI, denied AH/VH or paranoid/delusional thoughts. She had a good mood and was excited about her discharge home. A.: pt. is cooperative, pleasant, social with peers, has a bright affect. P.: monitor behavior, discharge home around 11:00 am; follow care plan.
--- NOTE | 2016-06-01 10:55 | PCM.DIMED ---
Discharge Instructions Date of Service Jun 01, 2016 Dates of Hospitalization May 24, 2016 at 11:40 Discharge Diagnosis Discharge Diagnosis [place] I: Bipolar 1 disorder, manic with psychotic features [place] II: Deferred. [place] III: None. [place] IV: Unknown. [place] V: Current Global Assessment of Functioning equal to 50. Test Results CBC Test 05/23/16 19:05 White Blood Count 8.1th/mm3 (3.8-10.1) Red Blood Count 4.46mil/mm3 (3.90-5.20) Hemoglobin 13.2g/dL (12.0-15.6) Hematocrit 38.0% (35.0-46.0) Mean Corpuscular Volume 85.2fL (81-100) Mean Corpuscular Hemoglobin 29.6pg (27.0-35.0) Mean Corpuscular Hemoglobin Concent 34.7% (32.0-37.0) Red Cell Distribution Width 13.0% (12.3-15.4) Platelet Count 186bil/L (150-400) Neutrophils (%) (Auto) 62.2% (40-74) Lymphocytes (%) (Auto) 26.8% (14-46) Monocytes (%) (Auto) 9.2% (4-12) Eosinophils (%) (Auto) 1.2% (0-5) Basophils (%) (Auto) 0.5% (0-3) CMP Test 05/23/16 19:05 Sodium Level 138mEq/L Potassium Level 3.5mEq/L Chloride Level 101mEq/L Carbon Dioxide Level 18mmol/L Blood Urea Nitrogen 3mg/dL Creatinine 0.69mg/dL Estimat Glomerular Filtration Rate 144mL/min Glucose Level 89mg/dL Calcium Level 8.7mg/dL Total Bilirubin 1.1mg/dL Aspartate Amino Transf (AST/SGOT) 17U/L Alanine Aminotransferase (ALT/SGPT) 13U/L Alkaline Phosphatase 44U/L Total Protein 6.9g/dL Albumin 4.2g/dL Thyroid Stimulating Hormone (TSH) 1.380uIU/mL Hold Read Top Tube Received Diet No restrictions Activity No restrictions Patient Instructions Should you have any thoughts of harming yourself or others, please call the crisis line, your provider, 911, or go to the nearest Emergency Department. Do not change or discontinue your medications without discussing with your provider. You have been given a prescription for 30 days supply of your medication Follow-up plan You have reported that you will be following up with Dr. Milena Haro [phone] Sandy Alonso in the [place], [place] area. Han Johnson MD Jun 01, 2016 10:55
[2016-06-01] MEDS ORDERED: OLAN10TA32 PO (10:57)
--- NOTE | 2016-06-01 11:37 | NUR ---
Nursing Note Discharge Pt discharged at 1130 with father, Ed Esteban & all belongings. Pt will be f/u with appointments in [place], [place]. Pt given phone numbers of providers to f/u with. Pt expressed understanding of all instructions. Pt given script for olanzapine 10mg #30. Pt refused to sign release of information form. Pt reports no homicidal or suicidal ideation. Pt pleasant & cooperative with d/c process.
--- NOTE | 2016-06-03 21:38 | PCM.DC.MED ---
Discharge Summary Date of Service Jun 01, 2016 Dates of Hospitalization Date of Hospital Admission May 24, 2016 at 11:40 Date of Discharge: Jun 01, 2016 Providers: Admitting Physician: Kyler Harvey MD Primary Care Physician: Jojo Attending Physician: Kyler Harvey MD Diagnosis at Time of Discharge Diagnosis at Time of Discharge [place] I: Bipolar 1 disorder, manic with psychotic features [place] II: Deferred. [place] III: None. [place] IV: Unknown. [place] V: Current Global Assessment of Functioning equal to 50. Brief History Per Dr. Harvey's Dictation from 05/25/16: IDENTIFICATION: The patient is a 30-year-old single white female, currently homeless. She apparently had been staying in [place], [place] before driving up here to see a friend in [place], [place]. She left approximately 40 hours ago. Client' s sister, Kristina Esteban, phone number [phone], reports the client has a history of bipolar mood disorder and PTSD. She normally lives in [place], [place]. REASON FOR ADMISSION: Client presented to [facility] on May 22, 2016, for unusual behavior. She was released and came to [facility] ER on April. At that time she was detained on a 72-hour involuntary treatment hold for psychotic and manic behavior. HISTORY OF PRESENT ILLNESS: The patient presents today for evaluation and treatment of psychosis and demarcus. I met with her for a 60-minute evaluation and reviewed course and records kept by [facility]. 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 Co-occurring issues are homelessness and a lack of a funding source. The client is a poor historian and I could not identify whether the condition had been present over time or developed recently. She is currently manifesting with symptoms of emotional lability, hyper-christian thought, delusional beliefs, flight of ideas, bizarre activity, a high degree of activity , socially inappropriate activity, and a disorganized thought process. She has posturing and odd manners, and is making odd gestures with her hands and her body. All of the above has seemed to be made worse by poor sleep and by homelessness. She is currently presenting with extreme emotional liability, marked cognitive deficits, and difficulty with impulse control, judgment, insight, coping, and reality testing. She is a poor historian and could not participate in a psychiatric review of systems or a physical review of systems. Hospital Course The patient initially declined all medication stating that she did not need medications as she did not believe she had a mental disorder. She eventually began taking olanzapine 10mg at bedtime and was noted to make significant improvement. She was reporting some sedation from clonazepam and requested discontinuation of same. She reported feeling more awake and that her thoughts less clouded. Although she was expressing some concerns regarding potential metabolic side effects, she was planning to continue to take medications and to have follow-up in [place] where she resides. At the time of discharge she was reporting her mood, sleep and appetite were all good. She was denying any significant anxiety or depression, had completed a well thought crisis plan, and was denying any hallucinations, or racing thoughts. She denied significant side effects or medical issues. Exam Vital Signs (Last) Date Time Temp Pulse Resp B/P Pulse Ox O2 Delivery O2 Flow Rate FiO2 05/31/16 15:32 36.4 93 16 110/71 Exam Discharge Mental Status Exam Appearance: Neat/well groomed Attitude: Pleasant, Cooperative Behavior: No unusual behavior Affect: Well Modulated/Appropriate Mood: Euthymic Thought Process/Associations: Logical/Sequential, Goal Directed Speech Production: Normal Speech Rate: Normal Speech Articulation: Normal Thought Content: Perseveration (mild) Danger to Self/Suicidal Ideation: None Danger to Others: None Hallucinations: Auditory (Denies), Visual (Denies) Consciousness: Alert Orientation: Person, Place, Date, Situation Memory: Grossly Intact Estimate Intellectual Function: Average Basis for IQ estimate: Awareness current events, Word use/vocabulary, Educational history Attention/Concentration & Cognition: Fair and improving Insight: Good Judgement: Good Test 05/23/16 17:16 05/23/16 19:05 Hold Urine Received (Received) White Blood Count 8.1th/mm3 (3.8-10.1) Red Blood Count 4.46mil/mm3 (3.90-5.20) Hemoglobin 13.2g/dL (12.0-15.6) Hematocrit 38.0% (35.0-46.0) Mean Corpuscular Volume 85.2fL (81-100) Mean Corpuscular Hemoglobin 29.6pg (27.0-35.0) Mean Corpuscular Hemoglobin Concent 34.7% (32.0-37.0) Red Cell Distribution Width 13.0% (12.3-15.4) Platelet Count 186bil/L (150-400) Neutrophils (%) (Auto) 62.2% (40-74) Lymphocytes (%) (Auto) 26.8% (14-46) Monocytes (%) (Auto) 9.2% (4-12) Eosinophils (%) (Auto) 1.2% (0-5) Basophils (%) (Auto) 0.5% (0-3) Sodium Level 138mEq/L (134-144) Potassium Level 3.5mEq/L (3.5-5.2) Chloride Level 101mEq/L (97-108) Carbon Dioxide Level 18mmol/L (18-29) Blood Urea Nitrogen 3mg/dL (6-20) Creatinine 0.69mg/dL (0.57-1.00) Estimat Glomerular Filtration Rate 144mL/min (>59) Glucose Level 89mg/dL (60-99) Calcium Level 8.7mg/dL (8.5-10.1) Total Bilirubin 1.1mg/dL (0.0-1.2) Aspartate Amino Transf (AST/SGOT) 17U/L (0-50) Alanine Aminotransferase (ALT/SGPT) 13U/L (0-32) Alkaline Phosphatase 44U/L (25-150) Total Protein 6.9g/dL (6.4-8.4) Albumin 4.2g/dL (3.4-5.0) Thyroid Stimulating Hormone (TSH) 1.380uIU/mL (0.450-4.500) Hold Read Top Tube Received (Received) Discharge Medications Discharge Medications Olanzapine ODT (Olanzapine ODT) 10 Mg Tablet 10 MG PO HS Prescribed by: ADELFO JOHNSON MD Followup Plan Disposition: The patient was picked up by her family and returned to the [facility]. As thee patient was denying danger to self, others and was able to meet her basic needs and was agreeable to continue to take medications and follow-up with appropriate treatment, there were no grounds for further assisted. The patient was declining further voluntary admission. Follow-up plan You have reported that you will be following up with Dr. Milena Haro or Dr. Sandy Alonso in the [place], [place] area. Discharge Diet: No restrictions Discharge Activity: No restrictions Patient Instructions Should you have any thoughts of harming yourself or others, please call the crisis line, your provider, 911, or go to the nearest Emergency Department. Do not change or discontinue your medications without discussing with your provider. You have been given a prescription for 30 days supply of your medication Adelfo Johnson MD Jun 01, 2016 22:42
== END 2016-06-01 11:30 | disposition home or self-care (01) | DRG 885 ==
LOC: SED 15:00 → MHC 05-24 11:40
PROVIDERS: ADMIT Psychiatry & Neurology Psychiatry; ATTEND Psychiatry & Neurology Psychiatry
DX: F31.2 Bipolar disorder, current episode manic severe with psychotic features (principal); Z59.0 Homelessness; Z53.1 Procedure and treatment not carried out because of patient's decision for reasons of belief and group pressure